=== PATIENT | male | born 1995 | race Asian ===

== ENCOUNTER 2020-05-01 13:47 | Outpatient (CLI) | payer OTHER | END 2020-05-01 23:25 | disposition home or self-care (01) | LOC: RAD 13:47 | PROVIDERS: ATTEND Orthopaedic Surgery | DX: M25.561 Pain in right knee (principal) ==

== ENCOUNTER 2020-07-04 14:29 | Outpatient (CLI) | payer OTHER | END 2020-07-04 22:09 | disposition home or self-care (01) | LOC: CT 14:29 | PROVIDERS: ATTEND Physician Assistant | DX: S82.114D Nondisplaced fracture of right tibial spine, subsequent encounter for closed fracture with routine healing (principal) ==

== ENCOUNTER 2020-08-28 15:28 | Outpatient (CLI) | payer OTHER | END 2020-08-28 19:29 | disposition home or self-care (01) | LOC: RAD 15:28 | PROVIDERS: ATTEND Orthopaedic Surgery | DX: M25.561 Pain in right knee (principal) ==

== ENCOUNTER 2020-10-30 14:59 | Outpatient (CLI) | payer OTHER | END 2020-10-30 21:38 | disposition home or self-care (01) | LOC: RAD 14:59 | PROVIDERS: ATTEND Orthopaedic Surgery | DX: M25.561 Pain in right knee (principal) ==